=== PATIENT | male | born 1970 | race Caucasian/White ===

== ENCOUNTER 2017-06-19 10:59 | Emergency (ER) | payer OTHER ==
[~2017-06-19] VITALS: Ht 175.3 cm; Wt 97.5 kg
[~2017-06-19 10:59] MED LIST: ASPIR 8181 MG PO; COREG25 MG PO; COZAAR 25 MG TA25 M1 PO; FUROSEMIDE 40 M40 M1 PO; POTASSIUM20 PO; PRINIVIL10 MG PO
[2017-06-19] MEDS ORDERED: ENTRESTO 49 MG1 EACH PO (11:21)
[2017-06-19] MEDS ORDERED: METOLAZONE 2.52.5 M1 PO (11:22)
[2017-06-19] MEDS ORDERED: IBUPROFEN 800800 M1 PO (11:53)
[2017-06-19] MEDS ORDERED: TRAMADOL 50 MG50 MG PO (11:53)
[2017-06-19 12:37] VITALS: BP 110/76
== END 2017-06-19 12:30 | disposition home or self-care (01) ==
LOC: M.ERS 10:59
DX: M25.562 Pain in left knee (principal); I50.9 Heart failure, unspecified; Z90.49 Acquired absence of other specified parts of digestive tract